=== PATIENT | male | born 1960 | race African-American/Black ===

== ENCOUNTER 2018-09-10 11:59 | Inpatient (IN) | payer OTHER ==
[~2018-09-10] VITALS: Ht 175.3 cm; Wt 83.0 kg
--- NOTE | 2018-09-10 11:59 | NUR ---
Pt BIB [facility]-Pt was at the gym on the treadmill. Pt seen to collapse on treadmill by bystanders. Bystanders found pt to be without a pulse and CPR was initiated. EMS arrived on scene, administered defib x1 and epi x1. ROSC achieved after meds and defib and pt began to wake up. Pt drowsy but arousable on arrival to ED A&O to self, denies medical hx, allergies. Defib pads applied as well as continuous heart, oxygen and BP Monitors. Dr. Mercer at bedside to evaluate pt.
--- NOTE | 2018-09-10 12:18 | NUR ---
Pt resting in bed with eyes closed, resp even and unlabored. Pt arousable to his name being called. rv service technician at bedside to collect blood sample.
[2018-09-10] MEDS ORDERED: ASPIRIN 81 MG TABLET CHEW PO ONE (12:30)
--- NOTE | 2018-09-10 12:31 | NUR ---
Pt positioned for comfort in bed with warm blanket. On removal of pt's clothes, small abrasion noted to pt's L knee. No other injuries noted.
[2018-09-10 12:34] LABS: BASOPHILS # (AUTO) 0.01 x10^3/uL (0-0.1); BASOPHILS % (AUTO) 0 % (0-1); EOSINOPHILS # (AUTO) 0.09 x10^3/uL (0-0.4); EOSINOPHILS % (AUTO) 1 % (1-7); LYMPHOCYTES # (AUTO) 3.44 x10^3/uL (1-3.4); LYMPHOCYTES % (AUTO) 39 % (22-44); MD NO; MEAN CORPUSCULAR HEMOGLOBIN 28.3 pg (27.5-34.5); MEAN CORPUSCULAR HGB CONC 33.1 g/dL (33.2-36.2); MEAN CORPUSCULAR VOLUME 85.3 fL (81-97); MEAN PLATELET VOLUME 8.4 fL (7.4-10.4); MONOCYTES # (AUTO) 0.75 x10^3/uL (0.2-0.8); MONOCYTES % (AUTO) 9 % (2-9); NEUTROPHILS # (AUTO) 4.61 x10^3/uL (1.8-6.8); NEUTROPHILS % (AUTO) 52 % (42-75); PLATELET COUNT 206 x10^3/uL (130-400); RED BLOOD COUNT 4.75 x10^6/uL (4.38-5.82); RED CELL DISTRIBUTION WIDTH 15.7 % (9.4-14.8)
[2018-09-10] MEDS ORDERED: ASPIRIN 81 MG TABLET CHEW ONE (12:37)
[2018-09-10 12:43] LABS: INTERNATIONAL NORMALIZED RATIO 1.01 (0.93-1.1); PROTHROMBIN TIME 10.6 Seconds (9.6-11.5)
--- NOTE | 2018-09-10 12:44 | NUR ---
attempt to call SO
[2018-09-10 12:46] LABS: ALANINE AMINOTRANSFERASE 693 U/L (12-78); ALBUMIN 3.5 g/dL (3.4-5.0); ANION GAP 15 mmol/L (5-15); CALCIUM 7.8 mg/dL (8.5-10.1); CHLORIDE 109 mmol/L (98-107); CREATININE 1.82 mg/dL (0.7-1.3)
[2018-09-10 12:50] LABS: ALKALINE PHOSPHATASE 79 U/L (45-117); BILIRUBIN,TOTAL 0.4 mg/dL (0.2-1.0); TOTAL PROTEIN 7.3 g/dL (6.4-8.2); TROPONIN I 0.102 ng/mL (0.000-0.045)
--- NOTE | 2018-09-10 12:51 | NUR ---
[facility], CALLED. UPDATE GIVEN OVER THE PHONE.
--- NOTE | 2018-09-10 13:13 | NUR ---
JIGAR VENTURA AT BS. DR. PEREZ AT BS DISCUSSING POC
[2018-09-10] MEDS ORDERED: MORPHINE SULFATE 4 MG/ML, 1ML ONE (13:17)
--- NOTE | 2018-09-10 13:20 | NUR ---
Pt c/o pain in back and chest. Pt medicated for pain per MAR. Pt's remains at bedside.
--- NOTE | 2018-09-10 13:28 | NUR ---
Pt's R LE IO removed, ok per Dr. Mercer. Pt tolerated well. IO needle intact on removal, gauze and tape dressing applied to site.
[2018-09-10] MEDS ORDERED: ONDANSETRON 2MG/ML, 2ML IVPush ONE (13:30)
[2018-09-10] MEDS ORDERED: morphine SULFATE 10 MG/ML, 1ML IVPush ONE (13:30)
--- NOTE | 2018-09-10 13:30 | NUR ---
Pt more awake at this time. Pt Oriented to self, does not remember events of this morning. Pt follows commands, states pain improved after morphine.
--- NOTE | 2018-09-10 13:59 | NUR ---
Brennan gan in ED - 09/10/18 at 1401 by WALE Vik DRAPER note: This RN answered pt's call light. Pt given water and lights in room dimmed per pt request. Pt denies other needs.
--- NOTE | 2018-09-10 14:01 | NUR ---
Note at 1359 charted in error: wrong pt.
--- NOTE | 2018-09-10 14:22 | NUR ---
Report called to [facility] DRAPER on card tele. Floor ready for pt transport.
[2018-09-10 14:40] VITALS: BP 127/87
[2018-09-10] MEDS ORDERED: NIAC500C3 PO (14:43)
[2018-09-10] MEDS ORDERED: CHOL5000 PO (14:43)
[2018-09-10] MEDS ORDERED: CYAN100028 PO (14:43)
[2018-09-10] MEDS ORDERED: MELA5TAB19 PO (14:43)
[2018-09-10] MEDS ORDERED: MULT-658 PO (14:43)
[2018-09-10] MEDS ORDERED: OMEG1CAP23 PO (14:43)
[2018-09-10] MEDS ORDERED: OMEP40CA6 PO (14:43)
[2018-09-10] MEDS ORDERED: LOSA50TA14 PO (14:43)
[2018-09-10] MEDS ORDERED: ASPI81TA45 PO (15:24)
[2018-09-10] MEDS: ONDANSETRON 2MG/ML, 2ML IVPush PRN ×2 (15:46→22:11)
[2018-09-10] MEDS ORDERED: PROMETHAZINE 25 MG/ML, 1ML IM PRN (16:00)
[2018-09-10] MEDS ORDERED: POTASSIUM CHLORIDE 40 MEQ in SODIUM CHLORIDE 0.9% 500 ML IV ONE (16:00)
[2018-09-10] MEDS ORDERED: HYDROcodone/APAP 5/325 TABLET PO PRN (16:00)
[2018-09-10] MEDS ORDERED: ACETAMINOPHEN 325 MG TABLET PO PRN (16:00)
[2018-09-10] MEDS: CALCIUM CARBONATE 500 MG TAB.CHEW PO SCH ×2 (16:00→19:54)
[2018-09-10] MEDS ORDERED: MAGNESIUM SULFATE PMX 2GM/50ML 50 ML IV ONE (16:00)
[2018-09-10] MEDS ORDERED: NITROGLYCERIN 0.4 MG BOTTLE (25 TABS) SL PRN (16:00)
[2018-09-10] MEDS ORDERED: LABETALOL 5MG/ML, 20ML IVPush PRN (16:00)
[2018-09-10] MEDS ORDERED: ONDANSETRON 2MG/ML, 2ML IVPush PRN (16:00)
[2018-09-10] MEDS ORDERED: hydrALAzine 20 MG/ML, 1ML IVPush PRN (16:00)
[2018-09-10 17:31] LABS: ACETAMINOPHEN < 2 mcg/mL (10-30)
[2018-09-10] MEDS: SODIUM CHLORIDE 0.9% 1,000 ML IV SCH ×3 (17:32→19:54)
[2018-09-10] MEDS: HEPARIN 5,000 UNITS/ML, 1ML SQ SCH (18:44)
[2018-09-10 21:18] VITALS: BP 128/82
[2018-09-10] MEDS: morphine SULFATE 10 MG/ML, 1ML IVPush PRN (22:12)
[2018-09-11 01:28] VITALS: BP 111/67
[2018-09-11] MEDS: HEPARIN 5,000 UNITS/ML, 1ML SQ SCH ×3 (03:07→21:23)
[2018-09-11 04:39] LABS: BASOPHILS # (AUTO) 0.03 x10^3/uL (0-0.1); BASOPHILS % (AUTO) 0 % (0-1); EOSINOPHILS % (AUTO) 0 % (1-7); LYMPHOCYTES # (AUTO) 1.09 x10^3/uL (1-3.4); LYMPHOCYTES % (AUTO) 10 % (22-44); MD NO; MEAN CORPUSCULAR HEMOGLOBIN 28.5 pg (27.5-34.5); MEAN CORPUSCULAR HGB CONC 33.5 g/dL (33.2-36.2); MEAN CORPUSCULAR VOLUME 85.2 fL (81-97); MEAN PLATELET VOLUME 8.4 fL (7.4-10.4); MONOCYTES # (AUTO) 0.94 x10^3/uL (0.2-0.8); MONOCYTES % (AUTO) 9 % (2-9); NEUTROPHILS # (AUTO) 8.83 x10^3/uL (1.8-6.8); NEUTROPHILS % (AUTO) 81 % (42-75); PLATELET COUNT 186 x10^3/uL (130-400); RED BLOOD COUNT 4.27 x10^6/uL (4.38-5.82); RED CELL DISTRIBUTION WIDTH 15.6 % (9.4-14.8)
[2018-09-11 04:47] LABS: ALANINE AMINOTRANSFERASE 445 U/L (12-78); ALBUMIN 3.1 g/dL (3.4-5.0); ANION GAP 6 mmol/L (5-15); CALCIUM 7.5 mg/dL (8.5-10.1); CHLORIDE 114 mmol/L (98-107); CHOLESTEROL, TOTAL 175 mg/dL (140-239)
[2018-09-11 04:52] LABS: ALKALINE PHOSPHATASE 63 U/L (45-117); BILIRUBIN,TOTAL 0.4 mg/dL (0.2-1.0); HDL CHOL % 33 % (26-37); HDL CHOLESTEROL (DIRECT) 58 mg/dL (40-60); LDL CHOLESTEROL,CALCULATED 109 mg/dL (54-169); LDL/HDL RATIO 1.9 (0.5-3.0); TOTAL PROTEIN 6.6 g/dL (6.4-8.2); TRIGLYCERIDES 42 mg/dL (50-200); VLDL CHOLESTEROL 8 mg/dL (0-25)
[2018-09-11] MEDS: SODIUM CHLORIDE 0.9% 1,000 ML IV SCH ×4 (06:04→21:25)
[2018-09-11] MEDS ORDERED: LIDOCAINE 2%, 20ML ONE (08:24)
[2018-09-11] MEDS ORDERED: MIDAZOLAM 1 MG/ML, 5ML ONE (08:24)
[2018-09-11] MEDS ORDERED: FENTANYL PF 100 MCG/2ML ONE (08:24)
[2018-09-11 08:30] VITALS: BP 132/81
[2018-09-11] MEDS: ASPIRIN 81 MG TABLET CHEW PO SCH (08:35)
[2018-09-11] MEDS: CALCIUM CARBONATE 500 MG TAB.CHEW PO SCH ×3 (08:36→21:22)
[2018-09-11] MEDS ORDERED: BIVALIRUDIN 250 MG ONE (09:43)
[2018-09-11] MEDS ORDERED: PRASUGREL 10 MG TABLET ONE (10:21)
[2018-09-11] MEDS ORDERED: BIVALIRUDIN 250 MG in SODIUM CHLORIDE 0.9% 50 ML IV SCH (10:56)
[2018-09-11 14:45] VITALS: BP 138/76
[2018-09-11 18:11] VITALS: BP 152/84
[2018-09-11] MEDS: CARVEDILOL 3.125 MG TABLET PO SCH (18:12)
[2018-09-11] MEDS: ONDANSETRON 2MG/ML, 2ML IVPush PRN ×2 (18:22→21:33)
[2018-09-11] MEDS: morphine SULFATE 10 MG/ML, 1ML IVPush PRN ×2 (18:22→21:21)
[2018-09-12 02:44] VITALS: BP 143/80
[2018-09-12] MEDS: CALCIUM CARBONATE 500 MG TAB.CHEW PO SCH ×3 (05:01→20:29)
[2018-09-12] MEDS: CARVEDILOL 3.125 MG TABLET PO SCH ×2 (05:02→16:48)
[2018-09-12] MEDS: HEPARIN 5,000 UNITS/ML, 1ML SQ SCH ×2 (05:02→14:33)
[2018-09-12 05:09] LABS: BASOPHILS # (AUTO) 0.03 x10^3/uL (0-0.1); BASOPHILS % (AUTO) 0 % (0-1); EOSINOPHILS # (AUTO) 0.01 x10^3/uL (0-0.4); EOSINOPHILS % (AUTO) 0 % (1-7); LYMPHOCYTES # (AUTO) 1.25 x10^3/uL (1-3.4); LYMPHOCYTES % (AUTO) 15 % (22-44); MD NO; MEAN CORPUSCULAR HEMOGLOBIN 28.4 pg (27.5-34.5); MEAN CORPUSCULAR HGB CONC 33.2 g/dL (33.2-36.2); MEAN CORPUSCULAR VOLUME 85.4 fL (81-97); MEAN PLATELET VOLUME 8.8 fL (7.4-10.4); MONOCYTES # (AUTO) 1.08 x10^3/uL (0.2-0.8); MONOCYTES % (AUTO) 13 % (2-9); NEUTROPHILS # (AUTO) 6.08 x10^3/uL (1.8-6.8); NEUTROPHILS % (AUTO) 72 % (42-75); PLATELET COUNT 161 x10^3/uL (130-400); RED BLOOD COUNT 4.32 x10^6/uL (4.38-5.82)
[2018-09-12 05:15] LABS: CHLORIDE 114 mmol/L (98-107)
[2018-09-12 05:24] LABS: ALANINE AMINOTRANSFERASE 294 U/L (12-78); ALBUMIN 2.9 g/dL (3.4-5.0); ALKALINE PHOSPHATASE 58 U/L (45-117); ANION GAP 7 mmol/L (5-15); BILIRUBIN,TOTAL 0.5 mg/dL (0.2-1.0); CALCIUM 7.5 mg/dL (8.5-10.1); CREATININE 1.35 mg/dL (0.7-1.3); TOTAL PROTEIN 6.6 g/dL (6.4-8.2)
[2018-09-12] MEDS: SODIUM CHLORIDE 0.9% 1,000 ML IV SCH ×2 (07:45→16:49)
[2018-09-12] MEDS ORDERED: PRASUGREL 10 MG TABLET PO SCH (09:00)
[2018-09-12] MEDS ORDERED: SODIUM CHLORIDE 0.9%, 500ML IVBOLUS ONE (09:30)
[2018-09-12 09:40] VITALS: BP 150/82
[2018-09-12] MEDS: ASPIRIN 81 MG TABLET CHEW PO SCH (09:51)
[2018-09-12 12:23] VITALS: BP 156/95
[2018-09-12] MEDS: ONDANSETRON 2MG/ML, 2ML IVPush PRN (12:50)
[2018-09-12] MEDS: morphine SULFATE 10 MG/ML, 1ML IVPush PRN (12:50)
[2018-09-12] MEDS ORDERED: OXYcodone IR 5MG TABLET PO PRN (13:00)
[2018-09-12] MEDS: RIVAROXABAN 20 MG TABLET PO SCH (17:43)
[2018-09-12 20:26] VITALS: BP 155/76
[2018-09-12] MEDS: AMLODIPINE 5 MG TABLET PO SCH (20:29)
[2018-09-13 01:57] VITALS: BP 156/83
[2018-09-13] MEDS: SODIUM CHLORIDE 0.9% 1,000 ML IV SCH ×2 (02:46→13:49)
[2018-09-13 05:34] LABS: CHLORIDE 112 mmol/L (98-107)
[2018-09-13 05:41] LABS: ALANINE AMINOTRANSFERASE 199 U/L (12-78); ALKALINE PHOSPHATASE 65 U/L (45-117); ANION GAP 7 mmol/L (5-15); BILIRUBIN,TOTAL 0.6 mg/dL (0.2-1.0); CALCIUM 8.2 mg/dL (8.5-10.1); CREATININE 1.31 mg/dL (0.7-1.3); TOTAL PROTEIN 6.7 g/dL (6.4-8.2)
[2018-09-13 06:43] VITALS: BP 139/81
[2018-09-13] MEDS: CARVEDILOL 3.125 MG TABLET PO SCH (06:44)
[2018-09-13] MEDS ORDERED: RIVAROXABAN 20 MG TABLET PO SCH (08:00)
[2018-09-13] MEDS ORDERED: CLOPIDOGREL 75 MG TABLET PO SCH (09:00)
[2018-09-13] MEDS: AMLODIPINE 5 MG TABLET PO SCH (09:25)
[2018-09-13] MEDS: CALCIUM CARBONATE 500 MG TAB.CHEW PO SCH (09:25)
[2018-09-13] MEDS: RIVAROXABAN 20 MG TABLET PO SCH (09:26)
[2018-09-13 11:57] LABS: ANTI-NUCLEAR ANTIBODY PATTERN CYTOPLASMIC
[2018-09-13 13:27] VITALS: BP 129/79
[2018-09-13] MEDS: ONDANSETRON 2MG/ML, 2ML IVPush PRN (13:49)
[2018-09-13] MEDS ORDERED: NITR0.4T SL (14:16)
[2018-09-13] MEDS ORDERED: CLOP75TA PO (14:16)
[2018-09-13] MEDS ORDERED: AMLO-150 PO (14:16)
[2018-09-13] MEDS ORDERED: RIVA20TA PO (14:16)
[2018-09-13] MEDS ORDERED: CARV6.2512 PO (14:16)
[2018-09-13] MEDS ORDERED: GUAI-106 PO (14:59)
[2018-09-13] MEDS ORDERED: CARVEDILOL 6.25 MG TABLET PO SCH (18:00)
== END 2018-09-13 16:40 | disposition home or self-care (01) | DRG 246 ==
LOC: ED 13:14 → EDIP 13:15 → ED 13:57 → 5SO 14:31
PROVIDERS: ADMIT Internal Medicine; ATTEND Internal Medicine
PROC: 4A02XFZ Measurement of Cardiac Rhythm, External Approach (ICD-10-PCS; 2018-09-10)
PROC: 027035Z Dilation of Coronary Artery, One Artery with Two Drug-eluting Intraluminal Devices, Percutaneous Approach (ICD-10-PCS; principal; 2018-09-11)
PROC: 4A023N8 Measurement of Cardiac Sampling and Pressure, Bilateral, Percutaneous Approach (ICD-10-PCS; 2018-09-11)
PROC: B2111ZZ Fluoroscopy of Multiple Coronary Arteries using Low Osmolar Contrast (ICD-10-PCS; 2018-09-11)
PROC: B2161ZZ Fluoroscopy of Right and Left Heart using Low Osmolar Contrast (ICD-10-PCS; 2018-09-11)
DX: I49.01 Ventricular fibrillation (principal); N17.0 Acute kidney failure with tubular necrosis; K72.00 Acute and subacute hepatic failure without coma; I26.99 Other pulmonary embolism without acute cor pulmonale; E87.2 Acidosis; J91.8 Pleural effusion in other conditions classified elsewhere; J98.11 Atelectasis; G93.1 Anoxic brain damage, not elsewhere classified; I46.2 Cardiac arrest due to underlying cardiac condition; E83.42 Hypomagnesemia; E87.6 Hypokalemia; R73.9 Hyperglycemia, unspecified; E83.51 Hypocalcemia; I10 Essential (primary) hypertension; E78.5 Hyperlipidemia, unspecified; K21.9 Gastro-esophageal reflux disease without esophagitis; I27.20 Pulmonary hypertension, unspecified; Z95.820 Peripheral vascular angioplasty status with implants and grafts; I25.10 Atherosclerotic heart disease of native coronary artery without angina pectoris; D18.09 Hemangioma of other sites; Z87.891 Personal history of nicotine dependence
CPT/HCPCS: 36415; 93456; 93566; 99285; C9600; J3490; 0399T; 70450; 71045; 71275; 76705; 80053; 80061; 80307; 83605; 83735; 83880; 84443; 84484; 85025; 85610; 86038; 86704; 86706; 86708; 86803; 87340; 93005; 93306; 93880; 96374; 99156; 99157; C1760; C1769; C1894; G0378; J0583; J1644; J2250; J2405; J2550; J3010; J3480; C1725; C1874; C1887; J2270; J3475; J7030; J7040; Q9967